=== PATIENT | male | born 1945 | race Caucasian/White ===

== ENCOUNTER 2022-10-03 11:46 | Outpatient (CLI) | payer MEDICARE, SELFPAY ==
[2022-10-03 12:22] VITALS: BP 96/56; PULSE 62; RESP 20; TEMP 36.7; O2SAT 97
--- NOTE | 2022-10-03 12:57 | DI.RAD_ITS ---
Exam(s) XR PAIN CLINIC SACRIOILIAC 2V EXAM: XR PAIN CLINIC SACRIOILIAC 2V CLINICAL HISTORY: Dx:Sacroiliac Joint Dysfunction. TECHNIQUE: Fluoroscopy was provided for the referring physician for guidance with performing pain cl inic injection procedure. COMPARISON: No exams were available for comparison FINDINGS: Please see procedure note for details. Fluoro time: 18.6 seconds RADIATION DOSE DELIVERED: Ka,r=8.1 mGy
[2022-10-03] MEDS: Omnipaque 240 MG/ML 50 ML BTL IJ (12:59)
[2022-10-03] MEDS: methylPREDNISolone ACETATE 80 MG/ML VIAL IJ (12:59)
[2022-10-03 13:00] VITALS: BP 155/90; PULSE 68; RESP 15; O2SAT 96
--- NOTE | 2022-10-03 18:37 | PDOC.PAIN_ITS ---
Date of service: 10/03/22 Time of Service: 13:00 Pain Clinic Procedure Note Procedure Note Procedure Note: INTRA-ARTICULAR SI JOINT INJECTION Alexi Ontiveros has been referred to the [facility] for intra- articular SI joint injection. COMMENTS: Patient previously evaluated. He has pain directly over the left sacroiliac joint. Pre-procedure pain VAS was 8/10. Dx: Sacroiliac joint dysfunction Patient was interviewed and the medical record reviewed. There were no medical, pharmacologic, radiographic or other structural contraindications to attempting fluoroscopically guided intra-articular SI joint injection. Risks and expected side effects as well as potential benefit of the procedure were reviewed and voiced concerns addressed. The printed consent form was signed and witnessed. Standard time-out procedure was performed. Patient was placed in the prone position on the fluoroscopy table and automated blood pressure cuff and pulse oximeter applied. The skin entry point for approaching the left SI joint was identified under the most advantageous fluoroscopic view and marked. Following thorough Chlorhexadine preparation of the skin and draping and 1% lidocaine infiltration of the skin entry point and subcutaneous tissues, a 22 gauge spinal needle was placed under fluoroscopic guidance into the left SI joint was identified under the most advantageous fluoroscopic view and marked. Intra-articular placement was confirmed by a clear arthrogram resulting from the injection of 0.25ml Omnipaque 240, 1ml 1% lidocaine, and 80mg Depomedrol were injected intra-articularily with an initial reproduction of a significant component of the usual pain. Vital signs were stable throughout the procedure and were as recorded in the docflowsheet by the nursing staff. If given, dosages of intravenous drugs for anxiolysis and analgesia were documented in MAR. Follow up plans and appointments were discussed with the patient. Post procedure instruction was given as documented in nursing documentation and having met discharge criteria, and was discharged from the [facility]. COMMENTS: Post-procedure pain VAS was 2/10. He has home exercises and will start these in 2 days. If this procedure is effective, it can be completed up to 3 times per 12 months. Marc Purcell DO, MPH [facility]-Pain Management [facility] CC: Marce Jennings
== END 2022-10-03 11:47 | disposition home or self-care (01) ==
LOC: PC 11:46
PROVIDERS: PCP Internal Medicine; Visit Provider Preventive Medicine Occupational Medicine
DX: M53.3 Sacrococcygeal disorders, not elsewhere classified (principal); M54.50 Low back pain, unspecified
CPT/HCPCS: 27096; 72200; J1040; Q9967

== ENCOUNTER 2022-11-28 15:32 | Outpatient (CLI) | payer MEDICARE, SELFPAY ==
--- NOTE | 2022-11-28 06:00 | DI.RAD_ITS ---
Exam(s) XR PAIN CLINIC LUMBAR SP 2V EXAM: XR PAIN CLINIC LUMBAR SP 2V CLINICAL HISTORY: Dx:Lumbar Spondylosis TECHNIQUE: 2D and realtime digital imaging was performed. CONTRAST MATERIAL: Refer to procedure report. COMPARISON: No exams were available for comparison FINDINGS: Fluoroscopy was provided for Dr. Purcell during the performance of a lumbar facet injection. Please re jessica to the procedure report for complete details. Ka,r=20.6 mGy IMPRESSION:
[2022-11-28 16:02] VITALS: BP 129/75; PULSE 61; RESP 20; TEMP 36.6; O2SAT 98
--- NOTE | 2022-11-28 16:53 | PDOC.PAIN ---
Date of service: 11/28/22 Time of Service: 17:03 Pain Managment Procedure Note Procedure Note Procedure Note: INTRA-ARTICULAR FACET JOINT INJECTION Alexi Ontiveros has been referred to the [facility] for intra-articular lumbar facet joint injection. COMMENTS: I previously evaluated the patient Dx: Lumbosacral spondylosis without myelopathy Pre-procedure pain VAS was 8/10 Patient was interviewed and the medical record reviewed. There were no medical, pharmacologic, radiographic or other structural contraindications to attempting fluoroscopically guided intra-articular lumbar facet joint injection. Risks and expected side effects as well as potential benefit of the procedure were reviewed and voiced concerns addressed. The printed consent form was signed and witnessed. Standard time-out procedure was performed. Patient was placed in the prone position on the fluoroscopy table and automated blood pressure cuff and pulse oximeter applied. The skin entry point for approaching left facet joints at L4-L5 and L5-S1 was identified under the most advantageous fluoroscopic view and marked. Following thorough Chlorhexadine preparation of the skin and draping and 1% lidocaine infiltration of the skin entry point and subcutaneous tissues, a 22 gauge spinal needle was placed under fluoroscopic guidance into left L4-L5 and L5-S1 facet joints. Intra-articular placement was confirmed by a clear arthrogram resulting from the injection of 0.25ml Omnipaque 240. 40mg Depomedrol (80mg/cc) were injected intra-articularily with an initial reproduction of a significant component of the usual pain. This was followed by 1 cc of 1% Lidocaine and the needles were removed. Vital signs were stable throughout the procedure and were as recorded in the docflowsheet by the nursing staff. If given, dosages of intravenous drugs for anxiolysis and analgesia were documented in MAR. Follow up plans and appointments were discussed. Post procedure instruction was given as documented in nursing documentation and having met discharge criteria,was discharged from the [facility] Management Center. COMMENTS: Post-procedure pain VAS was 0/10. If he achieves 80% pain control to the low back for an hour, he could then have a confirmatory LMBB in the future if the pain returned. Again, we are doing the facet joint injection instead of the LMBB now as he needs pain control now so that he can help his . Marc Purcell DO, MPH [facility]-Pain Management [facility]-Center for Pain Management CC: Marce Jennings
[2022-11-28 16:54] VITALS: BP 141/85; PULSE 66; RESP 16; O2SAT 97
[2022-11-28] MEDS: Omnipaque 240 MG/ML 50 ML BTL IJ (16:54)
[2022-11-28] MEDS: methylPREDNISolone ACETATE 80 MG/ML VIAL IJ (16:54)
== END 2022-11-28 15:33 | disposition home or self-care (01) ==
LOC: PC 15:32
PROVIDERS: PCP Internal Medicine; Visit Provider Preventive Medicine Occupational Medicine
DX: M47.817 Spondylosis without myelopathy or radiculopathy, lumbosacral region (principal); M54.50 Low back pain, unspecified
CPT/HCPCS: 64493; 64494; 72100; J1040; Q9967

== ENCOUNTER 2023-04-10 08:57 | Outpatient (CLI) | payer MEDICARE, SELFPAY ==
--- NOTE | 2023-04-10 06:00 | DI.RAD_ITS ---
Exam(s) XR PAIN CLINIC LUMBAR SP 2V EXAM: XR PAIN CLINIC LUMBAR SP 2V CLINICAL HISTORY: Dx: Lumbar Spondylosis TECHNIQUE: 2D and realtime digital imaging was performed. Radiologist not present. CONTRAST MATERIAL: None. COMPARISON: No exams were available for comparison FINDINGS: Fluoroscopy was provided for pain management therapy. Please refer to procedure report or details. Radiation Exposure Index: Ka,i=3223 mGy IMPRESSION: As above. RADIATION DOSE DELIVERED:
[2023-04-10 09:10] VITALS: BP 134/88; PULSE 59; RESP 20; TEMP 36.6; O2SAT 97
--- NOTE | 2023-04-10 10:20 | PDOC.PAIN_ITS ---
Date of service: 04/10/23 Time of Service: 10:20 Pain Managment Procedure Note Procedure Note Procedure Note: PROCEDURE NOTE Left Lumbar Intra-articular Facet Joint injections #2 Date of Service: April 10, 2023 Patient: Alexi Ontiveros Provider: Marc Purcell DO, MPH Alexi Ontiveros has been referred to the [facility] for lumbar medial branch blocks. Pre-operative diagnosis: Lumbar Spondylosis without Myelopathy Post-operative diagnosis: Same Pre-procedure pain: VAS= 10/10 COMMENTS: He did very well with his first IA facet joint injection. He was in severe pain at the first procedure and needed relief to complete activities in his life. This is the reasoning for completing the IA facet joint injections instead of lumbar medial branch blocks. Alexi? was interviewed and the medical records were reviewed. There were no medical, pharmacologic, radiographic or other structural contraindications to attempting fluoroscopically guided local anesthetic lumbar facet injections. Risks and potential side effects were discussed. I also discussed the potential benefit(s) of the procedure with Alexi, and voiced concerns were addressed. After Alexi was completely informed about the procedure, the printed consent form was signed. A standard time-out procedure was performed. Alexi was placed in the prone position on the fluoroscopy table. Automated blood pressure cuff and pulse oximeter were applied. The skin entry points for approaching the anatomic target points of the left L4-L5 and L5-S1 facet joints were identified with fluoroscopy and marked. The skin at the target site area was thoroughly prepared with Chlorhexadine. The skin was then draped. Next, a 25 gauge 3.5 spinal needle was placed under fluoroscopic guidance down on to the target point (the facet joint). Position was confirmed in flouroscopy. Aspiration revealed no blood or clear fluid. Next, 0.25ml of omnipaque 240 was injected at each level. No contrast following a vascular or neural pattern was visualized under continuous fluoroscopy. Next, 0.5 ml of preservative-free Depomedrol (40 mg/cc) followed by 1% lidocaine was injected at each level. There was no unusual discomfort expressed by Alexi. The needles were withdrawn without difficulty. (49 mls of Omnipaque was wasted) Alexi was observed and was without hemodynamic, neurologic, or allergic reactions.? Fluoroscopic images were digitally archived. Provacative testing using the Modified Locke's facet loading test- Left side Directly before the block VAS (0-10) = 10/10 Five minutes after the block VAS (0-10) = 0/10 Percentage relief obtained with this diagnostic block 100% Any improved physical functioning directly after the blocks? Able to move and walk without pain Follow up plans and appointments were discussed with Alexi. Alexi was instructed to keep careful note of how the usual pain was modified by these i njections. Specifically, to keep a pain diary for the next 4 hours using a numeric pain scale of 0-10 and report these results. Post procedure instruction was given as documented in the nursing documentation and having met discharge criteria, the patient was discharged from the [facility]. Based on the medial branches blocked today, if they patient has adequate relief and we are able to proceed to radiofrequency ablation, the treatment should result in the denervation of the left L4-L5 and L5-S1 facet joints. We would expect to denervate a total of 2 facets during the radiofrequency ablation. COMMENTS: No apparent complications. Post-procedure pain: VAS= 0/10 Alexi will call back with 0-4 hour post-procedure pain scores. I personally performed the entire procedure. MARC PURCELL DO, MPH [employer]-subspecialty board certification in Pain Medicine [facility]-[place] [facility]
[2023-04-10 10:28] VITALS: BP 146/85; PULSE 60; RESP 16; O2SAT 97
[2023-04-10] MEDS: Omnipaque 240 MG/ML 50 ML BTL IJ (10:29)
[2023-04-10] MEDS: methylPREDNISolone ACETATE 40 MG/ML VIAL (10:30)
== END 2023-04-10 08:58 | disposition home or self-care (01) ==
LOC: PC 08:58
PROVIDERS: PCP Internal Medicine; Visit Provider Preventive Medicine Occupational Medicine
DX: M54.50 Low back pain, unspecified (principal); M47.816 Spondylosis without myelopathy or radiculopathy, lumbar region
CPT/HCPCS: 64493; 64494; 72100; J1030; Q9967

== ENCOUNTER 2023-08-01 11:01 | Outpatient (CLI) | payer MEDICARE, SELFPAY ==
[2023-08-01 11:14] VITALS: BP 109/73; PULSE 60; RESP 20; TEMP 36.7; O2SAT 96
[2023-08-01] MEDS: fentaNYL 100 MCG/2 ML VIAL IVP (12:06)
[2023-08-01] MEDS: Midazolam 2 MG/2 ML VIAL IVP (12:07)
[2023-08-01] MEDS: Lactated Ringers 500 ML 80 ML IV (12:07)
[2023-08-01 12:25] VITALS: BP 141/79; PULSE 61; RESP 18; O2SAT 97
--- NOTE | 2023-08-01 12:28 | PDOC.PAIN_ITS ---
Date of service: 08/01/23 Time of Service: 12:29 Pain Managment Procedure Note Procedure Note Procedure Note: PROCEDURE NOTE LEST LUMBAR RADIOFREQUENCY ABLATION Date of Service: August 01, 2023 Patient:Alexi Nolan? Provider:? Marc Purcell DO, MPH Alexi Ontiveros has been referred to the [facility] for Left Lumbar Radiofrequency Ablation with the [employer] Machine.? Pre Operative Diagnosis: Lumbosacral Spondylosis without Myelopathy Post Operative Diagnosis: Same Pre procedure pain; VAS= 7/10 Comments: Excellent relief with his LMBBs PROCEDURE: Radiofrequency Ablation of medial branches - left L3, L4, L5 and lateral branches of left S1. Alexi?was interviewed and the medical record was reviewed.? There were no medical, pharmacologic, radiographic or other structural contraindications to attempting fluoroscopically guided LEFT Lumbar Radiofrequency Ablation.?Risks and expected side effects as well as potential benefit of the procedure were reviewed with Alexi, and the patient's voiced concerns were addressed.? The printed consent form was signed.? Standard time-out procedure was performed. Alexi was brought into the fluoroscopy suite and positioned into the prone position on the fluoroscopy table and allowed to adjust to a position of comfort. A grounding pad was placed on the left abdomen. The sterile field was prepared using chlorhexidine preparation of the skin and sterile draping. Local anesthesia superficial and deep was provided by local infiltration of 2% lidocaine. A 17g 100 mm radiofrequency introducer needle was placed to the planned anatomic targets guided with intermittent fluoroscopy with a perpendicular approach to terminally place at the junction of the superior articular process and the transverse process of the left L4, L5, the base of the sacral ala on the left for the L5 medial branch nerve and the area between base of the sacral ala to the S1 foramen left. The stylets were removed and radiofrequency probes with a 4mm active tip were then inserted. Needle tip position of the probes was verified in the AP, oblique, and lateral views. At each site, the medial branch nerve was stimulated at 2 Hz to a maximum 1-2 volts determined to finalize safe needle and electrode placement. The patient was awake and responsive during this portion of the procedure. Each target was anesthetized with 1-2 mL of 2 % Lidocaine for anesthesia for lesioning and then each target was lesioned at 80 degrees Celsius for 2 minutes and 30 seconds. Tissue impedances were noted to be between 250 and 500 Ohms. There was no unusual discomfort expressed by Alexi. I injected 1/4 cc of Depomedrol (40 mg/cc) followed by 1 cc of 0.5% Marcaine. The needles were withdrawn without difficulty and bandages placed over the needle placement sites, the patient was observed and was without hemodynamic, neurologic, or allergic reactions. Fluoroscopic images were digitally archived. POST PROCEDURE EVALUATION: IMPRESSION: 1. Summary of procedure. Medication given is documented in the MAR. 2. Follow up plan: Alexi to contact Center for [facility] as needed.?This procedure may be repeated if the patient achieves at least 50% improvement in pain/function for at least 6 months. 3. Estimated Blood Loss: <5 mls 4. Fluoroscopy time: Documented in the EMR. Follow up plans and appointments were discussed with the Alexi. Post procedure instruction was given as documented in nursing documentation and having met discharge criteria, Alexi was discharged from the [place] [facility]. COMMENTS: No apparent complications. Post-procedure pain: VAS= 1/10. I personally completed the entire procedure. MARC PURCELL DO, MPH [employer] - Subspecialty board certification in Pain Medicine [facility]-[place] [facility]
--- NOTE | 2023-08-01 12:29 | DI.RAD_ITS ---
Exam(s) XR PAIN CLINIC LUMBAR SP 2V EXAM: XR PAIN CLINIC LUMBAR SP 2V CLINICAL HISTORY: DX: Lumbar Spondylosis TECHNIQUE: 2D and realtime digital imaging was performed. CONTRAST MATERIAL: Refer to procedure report. COMPARISON: No exams were available for comparison FINDINGS: Fluoroscopy was provided for Dr. Purcell during the performance of a lumbar radiofrequency ablation. P lease refer to the procedure report for complete details. Ka,r=18 mGy IMPRESSION:
[2023-08-01] MEDS: Lidocaine 2% Multi-Dose 20 ML VIAL IJ (12:40)
[2023-08-01] MEDS: methylPREDNISolone ACETATE 40 MG/ML VIAL IJ (12:41)
[2023-08-01] MEDS: Bupivacaine 0.5% Pres-Free 10 ML VIAL IJ (12:41)
== END 2023-08-01 11:02 | disposition home or self-care (01) ==
LOC: PC 11:01
PROVIDERS: PCP Internal Medicine; Visit Provider Preventive Medicine Occupational Medicine
DX: M54.50 Low back pain, unspecified (principal); M47.817 Spondylosis without myelopathy or radiculopathy, lumbosacral region
CPT/HCPCS: 123; 64635; 64636; 72100; 00123; J0665; J1030; J2003; J2250; J3010